=== PATIENT | male | born 2005 | race African-American/Black ===

== ENCOUNTER 2024-01-30 14:54 | Emergency (ER) | payer MEDICAID, OTHER ==
[~2024-01-30] VITALS: Ht 177.8 cm; Wt 51.1 kg
[2024-01-30 16:16] VITALS: BP 128/74; PULSE 81; RESP 16; TEMP 98.5; O2SAT 100
== END 2024-01-30 16:59 | disposition left against medical advice (07) ==
LOC: ER 14:54
DX: F12.93 Cannabis use, unspecified with withdrawal (principal)